=== PATIENT | male | born 1960 | race Caucasian/White ===

== ENCOUNTER 2019-08-29 13:59 | Emergency (ER) | payer BC ==
[~2019-08-29] VITALS: Ht 172.7 cm; Wt 68.0 kg
[~2019-08-29 13:59] MED LIST: ALLEGRA ALLERGY60 MG; LOSA25
[2019-08-29] MEDS ORDERED: ROSU10TA PO (14:26)
[2019-08-29] MEDS ORDERED: Augmentin 875-1 EACH PO (16:34)
== END 2019-08-29 16:56 | disposition home or self-care (01) ==
LOC: ER 13:59
DX: S91.341A Puncture wound with foreign body, right foot, initial encounter (principal); I10 Essential (primary) hypertension; E78.5 Hyperlipidemia, unspecified; W45.0XXA Nail entering through skin, initial encounter; Y99.0 Civilian activity done for income or pay
CPT/HCPCS: 73620; 90471; 90714; 96365-59; 96375-59; 99152; 99283-25; J0690; J1885; J2704; J7030